=== PATIENT | male | born 1960 | race Caucasian/White ===

== ENCOUNTER 2018-09-04 11:13 | Emergency (ER) | payer OTHER ==
[~2018-09-04] VITALS: Ht 182.9 cm; Wt 113.4 kg
[~2018-09-04 11:13] MED LIST: HYOSCYAMINE0.125 M1 SL; INTESTINEX1 CA1 PO; OXYC1TAB9 PO
== END 2018-09-04 16:52 | disposition home or self-care (01) ==
LOC: ER 11:13
DX: R06.02 Shortness of breath (principal); R10.13 Epigastric pain; K94.09 Other complications of colostomy